=== PATIENT | female | born 1990 | race Caucasian/White ===

== ENCOUNTER 2022-04-01 14:46 | Emergency (ER) | payer MEDICAID ==
[~2022-04-01] VITALS: Ht 149.9 cm; Wt 47.6 kg
[2022-04-01 16:17] VITALS: BP_SYST 112
[2022-04-01] MEDS ORDERED: IBUP-1969 PO (19:59)
[2022-04-01] MEDS ORDERED: ONDA-8 TL (19:59)
--- NOTE | 2022-04-01 20:00 | NUR ---
Patient to ER bed 03 to gown for evaluation. Side rails up.
--- NOTE | 2022-04-01 20:01 | NUR ---
PATIENT BROUGHT IN WITH FAMILY REPORTS AN OBJECT FELL YESTERDAY AND HIT HEAD. DENIES ANY NAUSEA, VOMITING, DIZZNESS, BLURRED VISION. PATIENT AOX 4 AND AMBULATORY. PAIN 2/10
--- NOTE | 2022-04-01 20:03 | NUR ---
ER Dr.DELA SLAUGHTER at bedside examining patient.
[2022-04-01 20:15] VITALS: BP_SYST 110
--- NOTE | 2022-04-01 20:15 | NUR ---
Patient given written and verbal discharge instructions and verbalizes understanding. ER MD discussed with patient the results and treatment provided. Patient in stable condition. ID arm band removed. Rx of IBUPROFEN AND ZOFRAN given. Patient educated on pain management and to follow up with PMD. Pain Scale 0/10 Opportunity for questions provided and answered. Medication side effect fact sheet provided.
== END 2022-04-01 20:15 | disposition home or self-care (01) ==
LOC: SED 14:46
DX: S06.0X0A Concussion without loss of consciousness, initial encounter (principal); R51.9 Headache, unspecified; W01.198A Fall on same level from slipping, tripping and stumbling with subsequent striking against other object, initial encounter; Y93.89 Activity, other specified; Y92.89 Other specified places as the place of occurrence of the external cause; Y99.8 Other external cause status
CPT/HCPCS: 70450-TC; 76376; 99284

== ENCOUNTER 2023-03-26 20:26 | Emergency (ER) | payer MEDICAID ==
[~2023-03-26] VITALS: Ht 142.2 cm; Wt 46.7 kg
[~2023-03-26 20:26] MED LIST: IBUP-1969 PO; ONDA-8 TL
[2023-03-26 20:30] VITALS: BP_SYST 97
--- NOTE | 2023-03-26 20:30 | NUR ---
Patient triaged and placed in ER bed Hallway 1. Bed placed in lowest position and side rails up. Report given to RN for continuity of care. Instructed patient to notify ED staff for any changes in condition or worsening of symptoms while waiting to be seen by a provider. Patient verbalized understanding. Addendum: 03/26/23 at 2035 by NATTY Patient triaged and placed in ER bed 8. Bed placed in lowest position and side rails up. Report given to LENA RN for continuity of care. Instructed patient to notify ED staff for any changes in condition or worsening of symptoms while waiting to be seen by a provider. Patient verbalized understanding.
--- NOTE | 2023-03-26 20:46 | NUR ---
Dr. Chicas at bedside for evaluation
--- NOTE | 2023-03-26 21:01 | NUR ---
[employer] at bedside. Blood obtained and specimens sent to lab.
[2023-03-26 21:09] LABS: BILIRUBIN,URINE NEGATIVE (NEGATIVE); BLOOD, URINE NEGATIVE (NEGATIVE); CLARITY/URINE CLEAR (CLEAR); COLOR,URINE YELLOW (YELLOW); GLUCOSE,URINE NEGATIVE (NEGATIVE); KETONES,URINE NEGATIVE (NEGATIVE); LEUKOCYTE ESTERASE ,URINE NEGATIVE (NEGATIVE); NITRITE, URINE NEGATIVE (NEGATIVE); PH,URINE 7.5 (5.0-8.0); PROTEIN URINE NEGATIVE (NEGATIVE); UROBILINOGEN,URINE 0.2 (0.2-1.0)
[2023-03-26 21:12] LABS: BASOPHILS % (AUTO) 0.2 % (0.0-2.0); EOSINOPHILS # (AUTO) 0.1 K/uL (0.0-0.4); EOSINOPHILS % (AUTO) 0.8 % (0.0-4.0); HEMATOCRIT 35.4 % (36-48); HEMOGLOBIN 12.1 g/dL (12.0-16.0); LYMPHOCYTES # (AUTO) 0.8 K/uL (1.0-5.5); LYMPHOCYTES % (AUTO) 13.1 % (20.5-51.5); MEAN CORPUSCULAR HEMOGLOBIN 31 pg (27-31); MEAN CORPUSCULAR HGB CONC 34 % (32-36); MEAN CORPUSCULAR VOLUME 91 fL (79.0-98.0); MONOCYTES # (AUTO) 0.3 K/uL (0.0-1.0); MONOCYTES % (AUTO) 3.9 % (1.7-9.3); NEUTROPHILS # (AUTO) 5.3 K/uL (1.8-7.7); PLATELET COUNT (AUTO) 192 K/uL (130-430); RED BLOOD CELL COUNT(AUTO) 3.89 MIL/uL (4.2-6.2); RED CELL DISTRIBUTION WIDTH 12.6 % (9.0-15.0); WHITE BLOOD COUNT (AUTO) 6.4 K/uL (4.8-10.8)
--- NOTE | 2023-03-26 21:24 | NUR ---
SL 20 gauge placed to RAC.
[2023-03-26 21:37] LABS: CALCIUM 8.3 mg/dL (8.4-11.0); CREATININE 0.68 mg/dL (0.55-1.30)
[2023-03-26 21:42] LABS: ALBUMIN 3.6 g/dL (3.4-4.8); TOTAL BILIRUBIN 0.5 mg/dL (0.0-1.0)
--- NOTE | 2023-03-26 22:00 | NUR ---
No change from previous assessment. Will continue to monitor VS & clinical status.
--- NOTE | 2023-03-26 22:08 | NUR ---
Patient to CT via & theatrical performer.
--- NOTE | 2023-03-26 22:20 | NUR ---
Patient return to bed [address]
--- NOTE | 2023-03-26 22:32 | NUR ---
Dr. Griffith at bedside examining the patient.
--- NOTE | 2023-03-26 23:23 | NUR ---
Dr. Griffith at bedside discussing labs, diagnostics & Tx plan. MD will discharge patient home.
[2023-03-26] MEDS ORDERED: POLY17PO4 PO (23:36)
[2023-03-26 23:45] VITALS: BP_SYST 101
--- NOTE | 2023-03-26 23:45 | NUR ---
DCI & Rx given to patient. Patient acknowledges & understand DCI & Rx. Patient ambulated OTD in stable condition.
== END 2023-03-26 23:45 | disposition home or self-care (01) ==
LOC: SED 20:26
DX: R10.30 Lower abdominal pain, unspecified (principal); R51.9 Headache, unspecified; R11.0 Nausea; Z79.899 Other long term (current) drug therapy
CPT/HCPCS: 99285; 74177; 80053; 83690; 85025; 36415; 76376; 81025; 81003; Q9967